=== PATIENT | female | born 1945 | race Asian ===

== ENCOUNTER 2016-10-24 15:44 | Outpatient (CLI) | payer OTHER ==
[~2016-10-24 15:44] MED LIST: CETI10TA PO; CIPRO500 MG PO; FLUT0.05 NAS; GABA300C2 PO; HYZAAR1 TA2 PO; MELOXICAM7.5 MG PO; SIMV20TA2 PO
== END 2016-10-24 19:32 | disposition home or self-care (01) ==
LOC: MAMMO 15:44
DX: Z12.31 Encounter for screening mammogram for malignant neoplasm of breast (principal)
CPT/HCPCS: G0202-TC

== ENCOUNTER 2017-12-26 09:59 | Outpatient (CLI) | payer OTHER | END 2017-12-26 19:47 | disposition home or self-care (01) | LOC: MAMMO 09:59 | DX: Z12.31 Encounter for screening mammogram for malignant neoplasm of breast (principal); Z13.820 Encounter for screening for osteoporosis; M85.88 Other specified disorders of bone density and structure, other site ==

== ENCOUNTER 2018-12-28 09:55 | Outpatient (CLI) | payer OTHER | END 2018-12-28 19:21 | disposition home or self-care (01) | LOC: MAMMO 09:55 | DX: Z12.31 Encounter for screening mammogram for malignant neoplasm of breast (principal) ==

== ENCOUNTER 2020-12-25 12:58 | Outpatient (CLI) | payer OTHER | END 2020-12-25 23:02 | disposition home or self-care (01) | LOC: MAMMO 12:58 | PROVIDERS: ATTEND Internal Medicine | DX: Z12.31 Encounter for screening mammogram for malignant neoplasm of breast (principal); N95.8 Other specified menopausal and perimenopausal disorders ==

== ENCOUNTER 2021-01-27 09:14 | Outpatient (CLI) | payer OTHER | END 2021-01-27 10:30 | disposition home or self-care (01) | LOC: INF 09:14 | PROVIDERS: ATTEND Internal Medicine Endocrinology, Diabetes & Metabolism | DX: M81.0 Age-related osteoporosis without current pathological fracture (principal) | CPT/HCPCS: 36415; 82310; 96372 ==

== ENCOUNTER 2021-08-04 10:21 | Outpatient (CLI) | payer OTHER ==
[~2021-08-04] VITALS: Ht 170.2 cm; Wt 96.2 kg
== END 2021-08-04 19:59 | disposition home or self-care (01) ==
LOC: INF 10:21
PROVIDERS: ATTEND Internal Medicine
DX: M85.80 Other specified disorders of bone density and structure, unspecified site (principal)
CPT/HCPCS: 36415; 82310; 96372; J0897

== ENCOUNTER 2021-12-28 09:03 | Outpatient (CLI) | payer OTHER | END 2021-12-28 19:28 | disposition home or self-care (01) | LOC: MAMMO 09:03 | PROVIDERS: ATTEND Internal Medicine | DX: Z12.31 Encounter for screening mammogram for malignant neoplasm of breast (principal) ==

== ENCOUNTER 2022-01-27 09:50 | Outpatient (CLI) | payer OTHER | END 2022-01-27 20:35 | disposition home or self-care (01) | LOC: RESP 09:50 | PROVIDERS: ATTEND Internal Medicine | DX: R06.02 Shortness of breath (principal); R01.1 Cardiac murmur, unspecified; R00.0 Tachycardia, unspecified ==

== ENCOUNTER 2022-12-30 10:25 | Outpatient (CLI) | payer OTHER | END 2022-12-30 18:59 | disposition home or self-care (01) | LOC: MAMMO 10:25 | PROVIDERS: ATTEND Nurse Practitioner Family | DX: Z12.31 Encounter for screening mammogram for malignant neoplasm of breast (principal) ==